=== PATIENT | female | born 1945 | race Caucasian/White ===

== ENCOUNTER 2018-04-26 09:37 | Inpatient (IN) | payer SELFPAY ==
[2018-04-26] VITALS (8 sets, daily range): BP systolic 127–173; BP diastolic 57–77; PULSE 72–87; RESP 18–20; Ht 157.5 cm; Wt 81.7 kg
[~2018-04-26] VITALS: Ht 157.5 cm; Wt 81.7 kg
[~2018-04-26 09:37] MED LIST: ADV25050 INHALATION; AMLO5TAB4 PO; ASPI-817 PO; ATOR40TA68 PO; BENA40TA56 PO; CALC667C PO; CARV25TA79 PO; FOLI-49 PO; FURO40TA4 PO; HYDR-3498 PO; HYDR-3672 PO; LANT3I SC; RTATR NEB; SENN-40 PO; VIT1TAB.4 PO
--- NOTE | 2018-04-26 10:27 | ERD ---
ER Documentation Chief Complaint Chief Complaint HPI 72-year-old woman brought in by EMS for syncopal episode and changes in mental s tatus about 15 minutes into hemodialysis. Patient has a long history of end- stage kidney disease. She states she had a headache this morning and does not really recall what happened while in dialysis. She had no vomiting, no seizure activity, no loss of bowel or bladder control, no recent fevers or chills, no chest pain or shortness of breath. Patient transported here by EMS without further complications ROS All systems reviewed and are negative except as per history of present illness. Medications Home Meds Reported Medications Docusate Sodium* (Colace*) 100 Mg Capsule, 100 MG PO TID PRN for CONSTIPATION, #60 CAP 04/26/18 Calcium Acetate* (Calcium Acetate*) 667 Mg Capsule, 1334 MG PO WITH MEALS, #60 CAP 04/26/18 Folic Acid/Vitamin B Comp W-C (Nephrocaps Capsule) 1 Mg Capsule, 1 MG PO DAILY, CAP 04/26/18 Benazepril Hcl* (Benazepril Hcl*) 40 Mg Tablet, 40 MG PO QHS, #30 TAB 04/26/18 Insulin Detemir (Levemir) 100 Unit/1 Ml Vial, 34 UNITS SC DAILY 04/26/18 Aspirin* (Aspirin*) 325 Mg Tablet, 325 MG PO DAILY, TAB 04/26/18 Albuterol Sulfate* (Albuterol Sulfate* Neb) 0.083%-3 Ml Neb, 2.5 MG NEB Q4H PRN for WHEEZING AND SOB, #30 VIAL 04/26/18 Hydrocodone Bit-Acetaminophen* ([place]*) 5-325 Mg Tab, 1 TAB PO Q6 PRN for SEVERE PAIN LEVEL 7-10, TAB 02/03/15 Hydralazine Hcl* (Hydralazine Hcl*) 50 Mg Tab, 50 MG PO Q6, #120 TAB 02/03/15 Folic Acid* (Folic Acid*) 1 Mg Tablet, 1 MG PO DAILY, TAB 02/03/15 Carvedilol* (Carvedilol*) 25 Mg Tablet, 25 MG PO BID, TAB 02/03/15 Atorvastatin* (Atorvastatin*) 40 Mg Tablet, 40 MG PO QHS, #30 TAB 02/03/15 Amlodipine Besylate* (Norvasc*) 5 Mg Tablet, 5 MG PO DAILY, TAB 02/03/15 Salmeterol Xinaf/Fluticasone* (Advair*) 250-50 Diskus Inhaler, 1 INH INHALATION BID, #1 INHALER 02/03/15 Furosemide* (Furosemide*) 40 Mg Tablet, 40 MG PO BID, TAB 12/08/13 Discontinued Reported Medications Calcium Acetate* (Calcium Acetate*) 667 Mg Capsule, 667 MG PO WITH MEALS, CAP 02/03/15 Vit B Complex & C No.13/Fa/D3 (NEPHROCAPS QT TABLET) 1 Each Tab.rapdis, 1 EACH PO DAILY 02/03/15 Sennosides-Docusate Sodium* (Senokot-S*) 50-8.6 Mg Tablet, 1 TAB PO TID PRN for CONSTIPATION, TAB 02/03/15 Benazepril Hcl* (Benazepril Hcl*) 40 Mg Tablet, 40 MG PO DAILY, TAB 02/03/15 Aspirin* (Aspirin* EC) 81 Mg Tablet.dr, 81 MG PO DAILY, TAB 02/03/15 Ipratropium [place]* (Atrovent*) 0.5 Mg/2.5 Ml Neb, 0.5 MG NEB Q4H PRN for WHEEZING AND SOB, #1 BOX 02/03/15 Insulin Glargine* (Lantus*) 100 Unit/Ml Soln, 34 UNIT SC HS, EA 05/27/14 Allergies Allergies: Coded Allergies: amoxicillin (Verified Allergy, Unknown, 04/26/18) PMhx/Soc End-stage kidney disease, hypertension, CHF, CAD, dyslipidemia, diabetes mellitus, obesity History of Surgery: Yes (TUBAL LIGATION) Anesthesia Reaction: No Hx Neurological Disorder: No Hx Respiratory Disorders: Yes (ASTHMA ) Hx Cardiac Disorders: Yes (HTN, HIGH CHOL,DB) Hx Psychiatric Problems: No Hx Miscellaneous Medical Probl: Yes (Chronic Renal Failure - Hemodialysis) Hx Alcohol Use: No Hx Substance Use: No Hx Tobacco Use: No Smoking Status: Never smoker FmHx Family History: No diabetes Physical Exam Vitals Vital Signs Date Temp Pulse Resp B/P (MAP) Pulse Ox O2 O2 Flow FiO2 Time Delivery Rate 04/26/18 97.8 76 20 106/69 96 09:54 (81) Physical Exam GENERAL: Well-developed, elderly woman, mild to moderate discomfort, afebrile HEENT: Moist mucous membranes, pink conjunctiva, no cervical spine tenderness or step-off deformities, no goiter, no jaundice or icterus, extraocular movements intact without pain. NEURO: Alert and oriented 3, eyes closed, cranial nerves II through XII intact bilaterally, pupils equal round reactive to light, no focal deficits or facial asymmetry, CARDIAC: Regular rate and rhythm, no murmurs rubs or gallops LUNGS: Clear bilaterally no wheezing crackles or stridor ABDOMEN: Soft nontender, no guarding, no rigidity, no rebound, no psoas sign no obturator sign. SKIN: Warm and dry to touch, no abrasions, contusions, or hematomas, no lacerations, no ecchymosis, no target lesions, and without ulcers EXTREMITIES: No clubbing cyanosis or edema, calves are bilaterally symmetrical, no Homans sign, no popliteal cord sign. Distal pulses equal and bilateral PSYCH: Normal affect without agitation or irritability Result Diagram: 04/26/18 1059 04/26/18 1059 Results 24 hrs Laboratory Tests Test 04/26/18 10:21 04/26/18 10:59 Bedside Glucose 145 mg/dL White Blood Count 14.9 10^3/ul Red Blood Count 2.80 10^6/ul Hemoglobin 8.6 g/dl Hematocrit 27.0 % Mean Corpuscular Volume 96.4 fl Mean Corpuscular Hemoglobin 30.7 pg Mean Corpuscular Hemoglobin Concent 31.9 g/dl Red Cell Distribution Width 15.1 % Platelet Count 153 10^3/UL Mean Platelet Volume 10.5 fl Immature Granulocytes % 1.700 % Neutrophils % 79.9 % Lymphocytes % 6.3 % Monocytes % 5.8 % Eosinophils % 5.6 % Basophils % 0.7 % Nucleated Red Blood Cells % 0.0 /100WBC Immature Granulocytes # 0.250 10^3/ul Neutrophils # 11.9 10^3/ul Lymphocytes # 0.9 10^3/ul Monocytes # 0.9 10^3/ul Eosinophils # 0.8 10^3/ul Basophils # 0.1 10^3/ul Nucleated Red Blood Cells # 0.0 10^3/ul Sodium Level 139 mmol/L Potassium Level 5.1 mmol/L Chloride Level 96 mmol/L Carbon Dioxide Level 29 mmol/L Anion Gap 14 Blood Urea Nitrogen 57 mg/dl Creatinine 4.70 mg/dl Est Glomerular Filtrat Rate mL/min mL/min Glucose Level 137 mg/dl Calcium Level 8.9 mg/dl Total Bilirubin 0.1 mg/dl Direct Bilirubin 0.00 mg/dl Indirect Bilirubin 0.1 mg/dl Aspartate Amino Transf (AST/SGOT) 29 IU/L Alanine Aminotransferase (ALT/SGPT) 34 IU/L Alkaline Phosphatase 78 IU/L Troponin I 0.055 ng/ml Total Protein 7.3 g/dl Albumin 3.9 g/dl Globulin 3.40 g/dl Albumin/Globulin Ratio 1.14 Lipase 87 U/L Procedures/MDM IV line was established patient was placed on cafeteria monitor rhythm strip revealed a sinus rhythm at about 70 bpm with upright P and T waves. Patient was afebrile EKG performed, read by me revealed a normal sinus rhythm at 72 bpm, left axis deviation, narrow QRS complex, no concerning ST elevations or depressions noted. Patient's blood sugar was normal. One AP view of the chest performed, read by me reveals no acute infiltrates, but bilateral pulmonary vascular congestion CT scan of the brain was performed, it was negative for acute bleed mass or shift. CBC was unremarkable, electrolytes revealed renal failure, troponin negative Departure Diagnosis: Primary Impression: Syncope Syncope type: unspecified Qualified Codes: R55 - Syncope and collapse Additional Impressions: End stage kidney disease Anemia Anemia type: unspecified type Qualified Codes: D64.9 - Anemia, unspecified Condition: FLORESITA Christina MD Apr 26, 2018 10:27
[2018-04-26] MEDS ORDERED: ALBU2.5V3 NEB (11:52)
[2018-04-26] MEDS ORDERED: LEVEM SC (11:54)
[2018-04-26] MEDS ORDERED: ASPI325T30 PO (11:54)
[2018-04-26] MEDS ORDERED: BENA40TA56 PO (11:56)
[2018-04-26] MEDS ORDERED: FOLI1CAP PO (11:56)
[2018-04-26] MEDS ORDERED: DOCU-144 PO (11:58)
[2018-04-26] MEDS ORDERED: CALC667C PO (11:58)
[2018-04-26] MEDS ORDERED: ACETAMINOPHEN 325 MG TAB PO ONE (12:30)
[2018-04-26] MEDS ORDERED: HYDROCODONE/APAP (5/325) TAB PO PRN (13:00)
[2018-04-26] MEDS ORDERED: ZOLPIDEM 5 MG TAB PO PRN (13:00)
[2018-04-26] MEDS ORDERED: ALBUTEROL/IPRATROPIUM (NEB) 3 ML AMP HHN PRN (13:00)
[2018-04-26] MEDS ORDERED: ONDANSETRON 4 MG INJ IV PRN (13:00)
[2018-04-26] MEDS ORDERED: morphine 2 MG INJ IV PRN (13:00)
[2018-04-26] MEDS ORDERED: DOCUSATE SODIUM 100 MG CAP PO PRN (13:00)
[2018-04-26] MEDS ORDERED: NACL 0.9% 3 ML SYG IV SCH (13:00)
--- NOTE | 2018-04-26 13:07 | HP ---
Date/Time of Note Date/Time of Note DATE: 04/26/18 TIME: 13:01 Assessment/Plan VTE Prophylaxis Pharmacological prophylaxis: heparin Lines/Catheters IV Catheter Type (from Nrsg): Saline Lock Assessment/Plan Hospital Course 1. Presyncope likely secondary to pneumonia IV antibiotics with Rocephin and azithromycin Monitor BP 2. Sepsis secondary to pneumonia IV antibiotics with Rocephin and azithromycin 3. ESRD Patient receives dialysis Tuesdays, and Saturdays and was unable to complete her session today Patient's steeler Dr. Calderon has been consulted 4. Diabetes Continue home insulin regimen Sliding scale Check A1c 5. Hypertension Patient BP is now elevated, will resume home meds Hydralazine as needed Prophylaxis: Heparin Result Diagram: 04/26/18 1059 04/26/18 1059 Results 24hrs Laboratory Tests Test 04/26/18 10:21 04/26/18 10:59 Bedside Glucose 145 White Blood Count 14.9 #H Red Blood Count 2.80 L Hemoglobin 8.6 L Hematocrit 27.0 L Mean Corpuscular Volume 96.4 Mean Corpuscular Hemoglobin 30.7 Mean Corpuscular Hemoglobin Concent 31.9 L Red Cell Distribution Width 15.1 H Platelet Count 153 Mean Platelet Volume 10.5 H Immature Granulocytes % 1.700 H Neutrophils % 79.9 H Lymphocytes % 6.3 L Monocytes % 5.8 Eosinophils % 5.6 Basophils % 0.7 Nucleated Red Blood Cells % 0.0 Immature Granulocytes # 0.250 H Neutrophils # 11.9 H Lymphocytes # 0.9 Monocytes # 0.9 Eosinophils # 0.8 H Basophils # 0.1 Nucleated Red Blood Cells # 0.0 Sodium Level 139 Potassium Level 5.1 Chloride Level 96 L Carbon Dioxide Level 29 Anion Gap 14 H Blood Urea Nitrogen 57 H Creatinine 4.70 H Est Glomerular Filtrat Rate mL/min Glucose Level 137 Calcium Level 8.9 Total Bilirubin 0.1 L Direct Bilirubin 0.00 Indirect Bilirubin 0.1 Aspartate Amino Transf (AST/SGOT) 29 Alanine Aminotransferase (ALT/SGPT) 34 Alkaline Phosphatase 78 Troponin I 0.055 Total Protein 7.3 Albumin 3.9 Globulin 3.40 H Albumin/Globulin Ratio 1.14 Lipase 87 HPI/ROS Admit Date/Time Admit Date/Time Apr 26, 2018 at 11:27 Hx of Present Illness Patient is a 72-year-old female with a history of hypertension, diabetes, end- stage renal disease receives dialysis on Tuesdays and Saturdays. Patient presents with presyncope with dizziness and hypotension during dialysis. Patient has been reporting a cough for the past week, denies any fever or chills, nausea, vomiting or diarrhea. Patient denies any sick contacts. In the ER patient was noted to have leukocytosis and chest x-ray showed possible pneumonia. Patient has no other complaints this time. ROS Constitutional: no complaints, improved Eyes: no complaints ENT: no complaints Respiratory: cough Cardiovascular: no complaints Gastrointestinal: no complaints Genitourinary: no complaints Musculoskeletal: no complaints Skin: no complaints Neurologic: dizziness Endocrine: no complaints Lymphatic: no complaints Psychological: no complaints, nl mood/affect Immunologic: no complaints PMH/Family/Social Past Medical History As per HPI Coded Allergies: amoxicillin (Verified Allergy, Unknown, 04/26/18) Family History Significant Family History: no pertinent family hx Social History Alcohol Use: none Smoking Status: Never smoker Drug Use: none Exam/Review of Systems Vital Signs Vitals Vital Signs Date Temp Pulse Resp B/P (MAP) Pulse Ox O2 O2 Flow FiO2 Time Delivery Rate 04/26/18 98.0 81 20 173/73 99 Room Air 12:29 (106) Exam Constitutional: alert, oriented Respiratory: clear to auscultation Cardiovascular: regular rate and rhythm Gastrointestinal: soft; No distended Musculoskeletal: nl extremities to inspection AVERY MACHUCA Apr 26, 2018 13:07
[2018-04-26] MEDS ORDERED: GLUCOSE GEL 15 GRAM TUBE PO PRN ×2 (13:30)
[2018-04-26] MEDS ORDERED: DEXTROSE 50% 50 ML SYRINGE IV PRN ×2 (13:30)
[2018-04-26] MEDS ORDERED: GLUCAGON 1 MG INJ IM PRN (13:30)
[2018-04-26] MEDS ORDERED: hydrALAzine 20 MG INJ IV PRN (13:30)
[2018-04-26] MEDS ORDERED: GLUCOSE GEL 15 GRAM TUBE BUCCAL PRN (13:30)
--- NOTE | 2018-04-26 13:52 | CONS ---
[facility] HCIS Consult Follow-up Patient Name: Elsy Vilchis Unit Number: [id number] Date of : 1945 Patient Status: Admitted Inpatient Attending Doctor: Cindi Scott Edit: AAKASH SORENSEN MD on 04/27/18 @ 16:41 seen and examined with [facility] ESRD> HYPOTENSION DURING HD HOLD HD TODAY Assessment/Plan Assessment/Plan Hospital Course (Demo Recall) 1. ESRD on HD Sat, , SAt. Today session was not finished 2. Syncope during HD more likely due to acute anemia 3. Recent nasal bleed 4. Hypertension 5. DM type II 6. Hx of asthma 7. Obesity 8. Hx of G tube Assessment/Plan (Daily) -consent for HD -HD today -control over BP -c/w phospate binders Consultation Date/Type/Reason Admit Date/Time Apr 26, 2018 at 11:27 Initial Consult Date 04/26/2018 Type of Consult nephrology Reason for Consultation ESRD Date/Time of Note DATE: 04/26/18 TIME: 13:44 24 HR Interval Summary Free Text/Dictation headache, chills Constitutional: chills Exam/Review of Systems Exam Vitals Vital Signs Date Temp Pulse Resp B/P (MAP) Pulse Ox O2 O2 Flow FiO2 Time Delivery Rate 04/26/18 98.0 81 20 173/73 99 Room Air 12:29 (106) Exam left AV fistula bleeding Constitutional: alert, oriented Head: normocephalic ENMT: nl external ears & nose, other (right nosrtil dry blood) Neck: supple Respiratory: clear to auscultation Gastrointestinal: soft Neurological: HARNESS PULLER II-XII intact Results Result Diagram: 04/26/18 1059 04/26/18 1059 Results 24hrs Laboratory Tests Test 04/26/18 10:21 04/26/18 10:59 Bedside Glucose 145 White Blood Count 14.9 #H Red Blood Count 2.80 L Hemoglobin 8.6 L Hematocrit 27.0 L Mean Corpuscular Volume 96.4 Mean Corpuscular Hemoglobin 30.7 Mean Corpuscular Hemoglobin Concent 31.9 L Red Cell Distribution Width 15.1 H Platelet Count 153 Mean Platelet Volume 10.5 H Immature Granulocytes % 1.700 H Neutrophils % 79.9 H Lymphocytes % 6.3 L Monocytes % 5.8 Eosinophils % 5.6 Basophils % 0.7 Nucleated Red Blood Cells % 0.0 Immature Granulocytes # 0.250 H Neutrophils # 11.9 H Lymphocytes # 0.9 Monocytes # 0.9 Eosinophils # 0.8 H Basophils # 0.1 Nucleated Red Blood Cells # 0.0 Sodium Level 139 Potassium Level 5.1 Chloride Level 96 L Carbon Dioxide Level 29 Anion Gap 14 H Blood Urea Nitrogen 57 H Creatinine 4.70 H Est Glomerular Filtrat Rate mL/min Glucose Level 137 Calcium Level 8.9 Total Bilirubin 0.1 L Direct Bilirubin 0.00 Indirect Bilirubin 0.1 Aspartate Amino Transf (AST/SGOT) 29 Alanine Aminotransferase (ALT/SGPT) 34 Alkaline Phosphatase 78 Troponin I 0.055 Total Protein 7.3 Albumin 3.9 Globulin 3.40 H Albumin/Globulin Ratio 1.14 Lipase 87 Medications Medication Current Medications IV Flush (NS 3 ml) 3 ml PER PROTOCOL IV ; Start 04/26/18 at 13:00 Ondansetron HCl (Zofran Inj) 4 mg Q6H PRN IV NAUSEA/VOMITING; Start 04/26/18 at 13:00; Status UNV Acetaminophen (Tylenol Tab) 650 mg Q6H PRN PO .PAIN 1-3 OR TEMP; Start 04/26/18 at 13:00 Acetaminophen/ Hydrocodone Bitart ([place] (5/325)) 1 tab Q6H PRN PO .MOD PAIN 4- 6; Start 04/26/18 at 13:00; Status UNV Morphine Sulfate (morphine) 2 mg Q4H PRN IV .SEVERE PAIN 7-10; Start 04/26/18 at 13:00 Zolpidem Tartrate (Ambien) 5 mg QHS PRN PO .INSOMNIA; Start 04/26/18 at 13:00 Heparin Sodium (Porcine) (Heparin (5000 Units/1ml)) 5,000 unit Q12 SC ; Start 04/26/18 at 21:00; Status UNV Ceftriaxone Sodium 50 ml @ 100 mls/hr Q24H IVPB ; Start 04/26/18 at 13:00; Status UNV Azithromycin 250 ml @ 250 mls/hr Q24H IVPB ; Start 04/26/18 at 13:00; Status UNV Amlodipine Besylate (Norvasc) 5 mg DAILY PO ; Start 04/27/18 at 09:00; Status UNV Aspirin (Aspirin) 325 mg DAILY PO ; Start 04/27/18 at 09:00; Status UNV Atorvastatin Calcium (Lipitor) 40 mg QHS PO ; Start 04/26/18 at 21:00 Benazepril HCl (Lotensin) 40 mg QHS PO ; Start 04/26/18 at 21:00; Status UNV Calcium Acetate (Phoslo) 1,334 mg WITH MEALS PO ; Start 04/26/18 at 17:55 Carvedilol (Coreg) 25 mg BID PO ; Start 04/26/18 at 13:30 Docusate Sodium (Colace) 100 mg TID PRN PO CONSTIPATION; Start 04/26/18 at 13:00 Folic Acid (Folic Acid) 1 mg DAILY PO ; Start 04/27/18 at 09:00; Status UNV Furosemide (Lasix) 40 mg BID PO ; Start 04/26/18 at 21:00; Status UNV Hydralazine HCl (Apresoline) 50 mg Q6 PO ; Start 04/26/18 at 18:00; Status UNV Insulin Detemir (Levemir) 34 units DAILY SC ; Start 04/27/18 at 09:00; Status UNV Miscellaneous Information 1 mg DAILY PO ; Start 04/27/18 at 09:00; Status UNV Albuterol/ Ipratropium (Duoneb) 3 ml Q4H RESP THERAPY PRN HHN SHORTNESS OF BREATH; Start 04/26/18 at 13:00; Status UNV Diagnostic Test (Pha) (Accu-Chek) 1 ea 02 XX ; Start 04/27/18 at 02:00 Insulin Aspart (Novolog Insulin Pen) NOVOLOG *MILD* ALGORITHM WITH MEALS BEDTIME SC ; Start 04/26/18 at 17:55 Hydralazine HCl (Apresoline) 10 mg Q4H PRN IV SBP>170; Start 3/2/19 at 13:30 Miscellaneous Information 1 ea NOTE XX ; Start 04/26/18 at 13:30 Glucose (Glutose) 15 gm Q15M PRN PO DECREASED GLUCOSE; Start 04/26/18 at 13:30 Glucose (Glutose) 22.5 gm Q15M PRN PO DECREASED GLUCOSE; Start 04/26/18 at 13:30 Dextrose (D50w Syringe) 25 ml Q15M PRN IV DECREASED GLUCOSE; Start 04/26/18 at 13:30 Dextrose (D50w Syringe) 50 ml Q15M PRN IV DECREASED GLUCOSE; Start 04/26/18 at 13:30 Glucagon (Glucagen) 1 mg Q15M PRN IM DECREASED GLUCOSE; Start 04/26/18 at 13:30 Glucose (Glutose) 15 gm Q15M PRN BUCCAL DECREASED GLUCOSE; Start 04/26/18 at 13:30 KIRK WELCH Apr 26, 2018 13:52
[2018-04-26] MEDS: AMLODIPINE 5 MG TAB PO SCH (14:00)
[2018-04-26] MEDS: CEFTRIAXONE 1 GM/50 ML (PMX) 50 ML IVPB SCH (15:19)
[2018-04-26] MEDS: FOLIC ACID 1 MG TAB PO SCH (15:19)
[2018-04-26] MEDS: ASPIRIN 325 MG TAB PO SCH (15:19)
[2018-04-26] MEDS: AZITHROMYCIN 500MG/NS (PMX) 250 ML IVPB SCH (15:56)
[2018-04-26] MEDS ORDERED: EPOETIN 4000 UNITS/1 ML INJ (ESRD) SC SCH (17:00)
[2018-04-26] MEDS: CALCIUM ACETATE 667 MG CAP PO SCH (18:05)
[2018-04-26] MEDS: FUROSEMIDE 40 MG TAB PO SCH (18:06)
[2018-04-26] MEDS: INSULIN ASPART [NOVOLOG] 3 ML PEN SC SCH ×2 (18:15→20:24)
[2018-04-26] MEDS: HEPARIN 5,000 UNIT/1 ML VIAL SC SCH (20:25)
[2018-04-26] MEDS ORDERED: ATORVASTATIN 40 MG TAB PO SCH (21:00)
[2018-04-26] MEDS ORDERED: BENAZEPRIL 40 MG TAB PO SCH (21:00)
[2018-04-26] MEDS: ACETAMINOPHEN 325 MG TAB PO PRN (23:36)
[2018-04-27] VITALS (23 sets, daily range): BP systolic 137–175; BP diastolic 46–85; PULSE 62–86; RESP 18–20
[2018-04-27] MEDS ORDERED: ACCU-CHEK XX SCH (02:00)
[2018-04-27] MEDS: FUROSEMIDE 40 MG TAB PO SCH ×2 (05:41→17:50)
[2018-04-27] MEDS: INSULIN ASPART [NOVOLOG] 3 ML PEN SC SCH ×3 (07:49→17:52)
[2018-04-27] MEDS: FOLIC ACID 1 MG TAB PO SCH (08:04)
[2018-04-27] MEDS: AMLODIPINE 5 MG TAB PO SCH (08:04)
[2018-04-27] MEDS: CALCIUM ACETATE 667 MG CAP PO SCH ×3 (08:04→17:46)
[2018-04-27] MEDS: ASPIRIN 325 MG TAB PO SCH (08:04)
[2018-04-27] MEDS: HEPARIN 5,000 UNIT/1 ML VIAL SC SCH (08:10)
[2018-04-27] MEDS ORDERED: INSULIN DETEMIR [LEVEMIR] (100 UNITS/ML) SYG SC SCH (09:00)
[2018-04-27] MEDS ORDERED: MULTIVIT/CA CARB/B CMPLX/FA TAB PO SCH (09:00)
--- NOTE | 2018-04-27 10:57 | CONS ---
Assessment/Plan Assessment/Plan Hospital Course (Demo Recall) 1. ESRD on HD Sat, , Sat. 2. Syncope during HD more likely due to acute anemia 3. Recent nasal bleed 4. Hypertension 5. DM type II 6. Hx of asthma 7. Obesity 8. Hx of G tube 9. S/p recent left foot 2 nd toe amputation Assessment/Plan (Daily) -HD today , BP slightly hypertensive -fall precaution -avoid nephrotoxic drugs Consultation Date/Type/Reason Admit Date/Time Apr 26, 2018 at 11:27 Initial Consult Date 04/26/2018 Type of Consult nephrology Reason for Consultation ESRD Date/Time of Note DATE: 04/27/18 TIME: 10:52 24 HR Interval Summary Free Text/Dictation dizziness Exam/Review of Systems Exam Vitals Vital Signs Date Temp Pulse Resp B/P (MAP) Pulse Ox O2 O2 Flow FiO2 Time Delivery Rate 04/27/18 84 08:00 04/27/18 98.3 20 149/70 96 Room Air 07:25 (96) Intake and Output 04/26/18 04/26/18 04/27/18 1515:00 23:00 07:00 IntakeIntake Total 600 ml 480 ml BalanceBalance 600 ml 480 ml Exam Left arm AV fistula Constitutional: alert, oriented ENMT: other (right side of the nose with old blood) Respiratory: clear to auscultation Cardiovascular: regular rate and rhythm Gastrointestinal: soft Musculoskeletal: other (left foot 2 nd toe amputation) Results Result Diagram: 04/27/18 0607 04/27/18 0607 Results 24hrs Laboratory Tests Test 04/26/18 10:59 04/26/18 16:10 04/26/18 18:02 04/26/18 20:16 White Blood Count 14.9 #H Red Blood Count 2.80 L Hemoglobin 8.6 L Hematocrit 27.0 L Mean Corpuscular Volume 96.4 Mean Corpuscular 30.7 Hemoglobin Mean Corpuscular 31.9 L Hemoglobin Concent Red Cell Distribution 15.1 H Width Platelet Count 153 Mean Platelet Volume 10.5 H Immature Granulocytes % 1.700 H Neutrophils % 79.9 H Lymphocytes % 6.3 L Monocytes % 5.8 Eosinophils % 5.6 Basophils % 0.7 Nucleated Red Blood 0.0 Cells % Immature Granulocytes # 0.250 H Neutrophils # 11.9 H Lymphocytes # 0.9 Monocytes # 0.9 Eosinophils # 0.8 H Basophils # 0.1 Nucleated Red Blood 0.0 Cells # Sodium Level 139 Potassium Level 5.1 Chloride Level 96 L Carbon Dioxide Level 29 Anion Gap 14 H Blood Urea Nitrogen 57 H Creatinine 4.70 H Est Glomerular Filtrat Rate mL/min Glucose Level 137 Calcium Level 8.9 Total Bilirubin 0.1 L Direct Bilirubin 0.00 Indirect Bilirubin 0.1 Aspartate Amino 29 Transf (AST/SGOT) Alanine 34 Aminotransferase (ALT/SG PT) Alkaline Phosphatase 78 Troponin I 0.055 Total Protein 7.3 Albumin 3.9 Globulin 3.40 H Albumin/Globulin Ratio 1.14 Lipase 87 Bedside Glucose 260 H 221 H 208 Test 04/27/18 02:31 04/27/18 06:07 04/27/18 07:47 Bedside Glucose 174 177 White Blood Count 6.9 # Red Blood Count 2.56 L Hemoglobin 7.7 L Hematocrit 24.8 L Mean Corpuscular Volume 96.9 Mean Corpuscular 30.1 Hemoglobin Mean Corpuscular 31.0 L Hemoglobin Concent Red Cell Distribution 15.4 H Width Platelet Count 153 Mean Platelet Volume 10.7 H Immature Granulocytes % 0.900 H Neutrophils % 54.6 Lymphocytes % 23.4 Monocytes % 9.3 Eosinophils % 10.4 H Basophils % 1.4 Nucleated Red Blood 0.0 Cells % Immature Granulocytes # 0.060 H Neutrophils # 3.8 Lymphocytes # 1.6 Monocytes # 0.6 Eosinophils # 0.7 H Basophils # 0.1 Nucleated Red Blood 0.0 Cells # Prothrombin Time 14.4 Prothrombin Time Ratio 1.1 INR International 1.11 Normalized Ratio Activated 29.7 Partial Thromboplast Time Sodium Level 137 Potassium Level 5.9 H Chloride Level 94 L Carbon Dioxide Level 27 Anion Gap 16 H Blood Urea Nitrogen 69 H Creatinine 5.91 H Est Glomerular Filtrat Rate mL/min Glucose Level 163 Hemoglobin A1c 7.1 H Calcium Level 8.6 Phosphorus Level 4.6 Magnesium Level 1.8 Medications Medication Current Medications IV Flush (NS 3 ml) 3 ml PER PROTOCOL IV ; Start 04/26/18 at 13:00 Ondansetron HCl (Zofran Inj) 4 mg Q6H PRN IV NAUSEA/VOMITING; Start 04/26/18 at 13:00 Acetaminophen (Tylenol Tab) 650 mg Q6H PRN PO .PAIN 1-3 OR TEMP Last administered on 04/26/18 23:36; Admin Dose 650 MG; Start 04/26/18 at 13:00 Acetaminophen/ Hydrocodone Bitart ([place] (5/325)) 1 tab Q6H PRN PO .MOD PAIN 4- 6; Start 04/26/18 at 13:00 Morphine Sulfate (morphine) 2 mg Q4H PRN IV .SEVERE PAIN 7-10; Start 04/26/18 at 13:00 Zolpidem Tartrate (Ambien) 5 mg QHS PRN PO .INSOMNIA Last administered on 04/26/18 23:14; Admin Dose 5 MG; Start 04/26/18 at 13:00 Heparin Sodium (Porcine) (Heparin (5000 Units/1ml)) 5,000 unit Q12 SC Last administered on 04/27/18 08:10; Admin Dose 5,000 UNIT; Start 04/26/18 at 21:00 Ceftriaxone Sodium 50 ml @ 100 mls/hr Q24H IVPB Last administered on 04/26/18 15:19; Admin Dose 100 MLS/HR; Start 04/26/18 at 14:00 Azithromycin 250 ml @ 250 mls/hr Q24H IVPB Last administered on 04/26/18 15:56; Admin Dose 250 MLS/HR; Start 04/26/18 at 15:00 Amlodipine Besylate (Norvasc) 5 mg DAILY PO ; Start 04/26/18 at 14:00 Aspirin (Aspirin) 325 mg DAILY PO Last administered on 04/27/18 08:04; Admin Dose 325 MG; Start 04/26/18 at 14:00 Atorvastatin Calcium (Lipitor) 40 mg QHS PO Last administered on 04/26/18 20:18; Admin Dose 40 MG; Start 04/26/18 at 21:00 Benazepril HCl (Lotensin) 40 mg QHS PO Last administered on 04/26/18 20:18; Admin Dose 40 MG; Start 04/26/18 at 21:00 Calcium Acetate (Phoslo) 1,334 mg WITH MEALS PO Last administered on 04/27/18 08:04; Admin Dose 1,334 MG; Start 04/26/18 at 17:55 Carvedilol (Coreg) 25 mg BID PO Last administered on 3/2/19at 23:14; Admin Dose 25 MG; Start 04/26/18 at 13:30 Docusate Sodium (Colace) 100 mg TID PRN PO CONSTIPATION; Start 04/26/18 at 13:00 Folic Acid (Folic Acid) 1 mg DAILY PO Last administered on 04/27/18at 08:04; Admin Dose 1 MG; Start 04/26/18 at 14:00 Furosemide (Lasix) 40 mg BID DIURETICS PO Last administered on 04/27/18at 05:41; Admin Dose 40 MG; Start 04/26/18 at 18:00 Hydralazine HCl (Apresoline) 50 mg Q6 PO Last administered on 04/27/18at 05:40; Admin Dose 50 MG; Start 04/26/18 at 18:00 Insulin Detemir (Levemir) 34 units DAILY SC Last administered on 04/27/18at 08:10; Admin Dose 34 UNITS; Start 04/27/18 at 09:00 Multivit/Ca Carb/ B Cmplx/FA/Prenat ([place]) 1 tab DAILY PO Last adminis tered on 04/27/18at 08:04; Admin Dose 1 TAB; Start 04/27/18 at 09:00 Albuterol/ Ipratropium (Duoneb) 3 ml Q4H RESP THERAPY PRN HHN SHORTNESS OF BREATH; Start 04/26/18 at 13:00 Diagnostic Test (Pha) (Accu-Chek) 1 ea 02 XX Last administered on 04/27/18at 02:40; Admin Dose 1 EA; Start 04/27/18 at 02:00 Insulin Aspart (Novolog Insulin Pen) NOVOLOG *MILD* ALGORITHM WITH MEALS BEDTIME SC Last administered on 04/27/18at 07:49; Admin Dose 1 UNIT; Start 04/26/18 at 17:55 Hydralazine HCl (Apresoline) 10 mg Q4H PRN IV SBP>170; Start 04/26/18 at 13:30 Miscellaneous Information 1 ea NOTE XX ; Start 04/26/18 at 13:30 Glucose (Glutose) 15 gm Q15M PRN PO DECREASED GLUCOSE; Start 04/26/18 at 13:30 Glucose (Glutose) 22.5 gm Q15M PRN PO DECREASED GLUCOSE; Start 04/26/18 at 13:30 Dextrose (D50w Syringe) 25 ml Q15M PRN IV DECREASED GLUCOSE; Start 04/26/18 at 13:30 Dextrose (D50w Syringe) 50 ml Q15M PRN IV DECREASED GLUCOSE; Start 04/26/18 at 13:30 Glucagon (Glucagen) 1 mg Q15M PRN IM DECREASED GLUCOSE; Start 04/26/18 at 13:30 Glucose (Glutose) 15 gm Q15M PRN BUCCAL DECREASED GLUCOSE; Start 04/26/18 at 13:30 Epoetin Caio (Epogen (Esrd)) 4,000 units TuThSa@17 SC Last administered on 04/26/18at 18:03; Admin Dose 4,000 UNITS; Start 04/26/18 at 17:00 KIRK WELCH Apr 27, 2018 10:57
--- NOTE | 2018-04-27 14:40 | RADRPT ---
Echocardiogram Report Patient Name: Juanita JEAN-BAPTISTE ID: [id number] : 1945 (72y 7m)Study Date: 04/27/2018 8:23:55 AM Gender: FAccession #: [id number] Tech: [facility] – [place], [place] Location: Ref.Physician: AVERY MACHUCA Height(Cm): 170 BSA: 1.95Weight(Kg): 80.7 Quality: GoodAccount #: Procedures: Echocardiographic Report: Transthoracic echocardiogram with complete 2D, M-Mode, and doppler examination. Indications: Syncope. Measurements: 2D/M Mode Doppler Measurement Value Normal Range Measurement Value Normal Range LA Volume 94.1 [ 22.0 - 52.0 ] ml ESHA VTI 1.2 [ 2.0 - 4.0 ] cm2 LA Volume Index 49 [ 16 - 34 ] ml/m2 AV Mean Paddy 1.5 [ 70.0 - 90.0 ] cm/ sec LVIDd 2D 5.8 [ 3.8 - 5.2 ] cm AV Mean PG 10.0 [ 2.0 - 4.0 ] mmHg LVIDs 2D 4.4 [ 2.2 - 3.5 ] cm AV VTI 53.3 cm LVPWd 2D 1.2 [ 0.6 - 0.9 ] cm LVOT Mean Paddy 0.5 [ 60.0 - 80.0 ] cm/ sec IVSd 2D 1.2 [ 0.6 - 0.9 ] cm LVOT Mean PG 1.0 [ 1.0 - 3.0 ] mmHg AoR Diam 2D 3.5 [ 2.3 - 3.1 ] cm LVOT Peak Paddy 0.8 [ 70.0 - 110.0 ] cm /sec EF 2D 47.3 [ 54.0 - 74.0 ] percent LVOT Peak PG 3.0 [ 2.0 - 6.0 ] mmHg LA Dimen 2D 4.1 [ 2.7 - 3.8 ] cm LVOT VTI 20.4 [ 20.0 - 30.0 ] cm LVOT Diam 2.0 [ 2.1 - 2.5 ] cm MV E Peak Paddy 1.4 [ 60.0 - 130.0 ] cm /sec MV A Peak Paddy 1.0 [ 100.0 - 120.0 ] c m/sec MV E/A 1.4 [ 0.8 - 1.5 ] ratio MV PHT 36.0 [ 20.0 - 100.0 ] ms ec MV Decel Time 121 [ 104 - 258 ] msec MV Decel [place] 11 Lat E` Paddy 0.1 [ 10.0 - 15.0 ] cm/ sec Lateral E/E` 16.4 [ 1.0 - 2.0 ] ratio Med E` Paddy 0.0 cm/sec MV E/A 1.4 [ 0.8 - 1.5 ] ratio MVA PHT 6.1 [ 2.0 - 4.0 ] cm2 TR Peak Paddy 3.7 [ 100.0 - 280.0 ] c m/sec TR Peak PG 53.0 mmHg PV Peak Paddy 0.9 [ 40.0 - 80.0 ] cm/ sec PV Peak PG 3.0 mmHg RVSP 61.0 [ 10.0 - 36.0 ] mmH g RA Pressure 8.0 mmHg Findings: Left Ventricle: Mild enlargement of left ventricle cavity. Mild global left ventricular systolic dysfunction. Mild left ventricular systolic dysfunction. Ejection fraction is visually estimated at 49 %. Abnormal Diastolic Function, patient unable to Valsalva. E/E'= 30. Right Ventricle: Normal right ventricular size. Normal right ventricular systolic function. Left Atrium: There is severe enlargement of left atrium, this is best demonstrated by LA volume index of 49. Right Atrium: There is mild enlargement of right atrium. Atrial Septum: Normal atrial septum. Mitral Valve: Mild mitral annular calcification. Mild mitral valve regurgitation. Aortic Valve: Mild to moderate aortic stenosis. Aortic valve Max velocity 2.10 m/sec. Max PG 18.00 mmHg. Mean PG 10.00 mmHg. Aortic valve area 1.20 cm2. Aortic cusps appear mildly calcified. Tricuspid Valve: Normal appearance of the tricuspid valve. Estimated peak PA systolic pressure 61 mmHg. There is mild tricuspid regurgitation. Pulmonic Valve: Normal pulmonic valve appearance. There is trace pulmonic regurgitation. Pericardium: Normal pericardium with no significant pericardial effusion. Aorta: Normal aortic root. IVC: Dilated IVC without respiratory collapse consistent with elevated right atrial pressure. Pulmonary Artery: Normal pulmonary artery size. Conclusions: Mild enlargement of left ventricle cavity. Mild global left ventricular systolic dysfunction. Mild left ventricular systolic dysfunction. Ejection fraction is visually estimated at 49 %. Abnormal Diastolic Function, patient unable to Valsalva. E/E'= 30. Normal atrial septum. Mild mitral annular calcification. Mild mitral valve regurgitation. Mild to moderate aortic stenosis. Aortic valve Max velocity 2.10 m/sec. Max PG 18.00 mmHg. Mean PG 10.00 mmHg. Aortic valve area 1.20 cm2. Aortic cusps appear mildly calcified. Electronically Signed By: Williams Gamboa 2018-04-27 14:39:24 PST
[2018-04-27] MEDS: ACETAMINOPHEN 325 MG TAB PO PRN (16:18)
[2018-04-27] MEDS: CEFTRIAXONE 1 GM/50 ML (PMX) 50 ML IVPB SCH (17:47)
--- NOTE | 2018-04-27 17:55 | PDOCDIS ---
Discharge Instructions CONDITION [id number] Patient Condition: [id number] Good HOME CARE INSTRUCTIONS: [id number] Special Diet: [id number] Renal ACTIVITY: [id number] Activity Restrictions: [id number] No Restrictions FOLLOW UP/APPOINTMENTS Follow-up Plan FOLLOW UP WITH YOUR PRIMARY CARE PHYSICIAN IN 1-2 WEEKS AVERY MACHUCA Apr 27, 2018 17:55
--- NOTE | 2018-04-27 17:59 | DS ---
Date/Time of Note Date/Time of Note DATE: 04/27/18 TIME: 17:55 Discharge Summary Admission/Discharge Info Admit Date/Time Apr 26, 2018 at 11:27 Discharge Date/Time April 27, 2018 Discharge Diagnosis 1. 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 Sepsis secondary to pneumonia versus reactive Status post IV antibiotics with Rocephin and azithromycin No indication for antibiotics upon DC 3. ESRD Patient receives dialysis Tuesdays, and Saturdays and was unable to complete her session yesterday Patient's it infrastructure specialist Dr. Calderon was consulted and dialysis was done in house 4. Diabetes Continue home insulin regimen 5. Hypertension Continue home meds Patient Condition: Good Hospital Course Patient is a 72-year-old female with history of diabetes, hypertension, end- stage renal disease who presented with presyncope as well as leukocytosis, chest x-ray showed possible pneumonia patient was started on empiric antibiotics. Patient's blood pressure at the dialysis center was reportedly low but did stabilize during the hospitalization and her home meds were resumed. Patient did tolerate dialysis in house and leukocytosis did resolve rapidly and may have been reactive with findings on chest x-ray likely secondary to pulmonary edema. 2D echo showed no significant findings, patient had no further episodes of dizziness and was stable for DC. On the day of discharge patient's vitals, labs and physical exam are stable. Home Meds Reported Medications Docusate Sodium* (Colace*) 100 Mg Capsule, 100 MG PO TID PRN for CONSTIPATION, #60 CAP 04/26/18 Calcium Acetate* (Calcium Acetate*) 667 Mg Capsule, 1334 MG PO WITH MEALS, #60 CAP 04/26/18 Folic Acid/Vitamin B Comp W-C (Nephrocaps Capsule) 1 Mg Capsule, 1 MG PO DAILY, CAP 04/26/18 Benazepril Hcl* (Benazepril Hcl*) 40 Mg Tablet, 40 MG PO QHS, #30 TAB 04/26/18 Insulin Detemir (Levemir) 100 Unit/1 Ml Vial, 34 UNITS SC DAILY 04/26/18 Aspirin* (Aspirin*) 325 Mg Tablet, 325 MG PO DAILY, TAB 04/26/18 Albuterol Sulfate* (Albuterol Sulfate* Neb) 0.083%-3 Ml Neb, 2.5 MG NEB Q4H PRN for WHEEZING AND SOB, #30 VIAL 04/26/18 Hydrocodone Bit-Acetaminophen* ([place]*) 5-325 Mg Tab, 1 TAB PO Q6 PRN for SEVERE PAIN LEVEL 7-10, TAB 02/03/15 Hydralazine Hcl* (Hydralazine Hcl*) 50 Mg Tab, 50 MG PO Q6, #120 TAB 02/03/15 Folic Acid* (Folic Acid*) 1 Mg Tablet, 1 MG PO DAILY, TAB 02/03/15 Carvedilol* (Carvedilol*) 25 Mg Tablet, 25 MG PO BID, TAB 02/03/15 Atorvastatin* (Atorvastatin*) 40 Mg Tablet, 40 MG PO QHS, #30 TAB 02/03/15 Amlodipine Besylate* (Norvasc*) 5 Mg Tablet, 5 MG PO DAILY, TAB 02/03/15 Salmeterol Xinaf/Fluticasone* (Advair*) 250-50 Diskus Inhaler, 1 INH INHALATION BID, #1 INHALER 02/03/15 Furosemide* (Furosemide*) 40 Mg Tablet, 40 MG PO BID, TAB 12/08/13 Discontinued Reported Medications Calcium Acetate* (Calcium Acetate*) 667 Mg Capsule, 667 MG PO WITH MEALS, CAP 02/03/15 Vit B Complex & C No.13/Fa/D3 (NEPHROCAPS QT TABLET) 1 Each Tab.rapdis, 1 EACH PO DAILY 02/03/15 Sennosides-Docusate Sodium* (Senokot-S*) 50-8.6 Mg Tablet, 1 TAB PO TID PRN for CONSTIPATION, TAB 02/03/15 Benazepril Hcl* (Benazepril Hcl*) 40 Mg Tablet, 40 MG PO DAILY, TAB 02/03/15 Aspirin* (Aspirin* EC) 81 Mg Tablet.dr, 81 MG PO DAILY, TAB 02/03/15 Ipratropium [place]* (Atrovent*) 0.5 Mg/2.5 Ml Neb, 0.5 MG NEB Q4H PRN for WHEEZING AND SOB, #1 BOX 02/03/15 Insulin Glargine* (Lantus*) 100 Unit/Ml Soln, 34 UNIT SC HS, EA 05/27/14 Follow-up Plan FOLLOW UP WITH YOUR PRIMARY CARE PHYSICIAN IN 1-2 WEEKS Primary Care Provider Not On Staff Doctor Time spent on discharge: > 30 minutes AVERY MACHUCA Apr 27, 2018 17:59
[2018-04-27] MEDS: AZITHROMYCIN 500MG/NS (PMX) 250 ML IVPB SCH (18:26)
== END 2018-04-27 20:20 | disposition home or self-care (01) | DRG 871 ==
LOC: E/R 09:37 → TEL 11:27
PROVIDERS: ADMIT Internal Medicine; ATTEND Internal Medicine
PROC: 5A1D70Z Performance of Urinary Filtration, Intermittent, Less than 6 Hours Per Day (ICD-10-PCS; principal; 2018-04-27)
DX: A41.9 Sepsis, unspecified organism (principal); J18.9 Pneumonia, unspecified organism; N18.6 End stage renal disease; I12.0 Hypertensive chronic kidney disease with stage 5 chronic kidney disease or end stage renal disease; Z99.2 Dependence on renal dialysis; E11.9 Type 2 diabetes mellitus without complications; D64.9 Anemia, unspecified
CPT/HCPCS: 70450; 71045; 80048; 80053; 82962; 83036; 83690; 83735; 84100; 84484; 85025; 85610; 85730; 86706; 87340; 90935; 93005; 93306; J0456; J0696; J1644; J1815; Q4081